=== PATIENT | male | born 1995 | race Native Hawaiian/Other Pacific Islander ===

== ENCOUNTER 2019-07-19 04:09 | Outpatient (CLI) | payer OTHER | END 2019-07-19 04:10 | disposition critical access hospital (66) | LOC: EMS 04:09 | PROVIDERS: ATTEND Surgery | DX: R51 Headache (principal); V89.2XXA Person injured in unspecified motor-vehicle accident, traffic, initial encounter; Y92.488 Other paved roadways as the place of occurrence of the external cause | CPT/HCPCS: A0425; A0429 ==